=== PATIENT | female | born 1985 | race Caucasian/White ===

== ENCOUNTER 2016-10-03 04:00 | Emergency (ER) | payer BC ==
[~2016-10-03] VITALS: Ht 165.1 cm; Wt 64.0 kg
[2016-10-03] MEDS ORDERED: IBUPROFEN 400MG TABLET PO ONE (06:30)
[2016-10-03 07:33] LABS: HCG SCREEN NEGATIVE
[2016-10-03 08:00] VITALS: BP 131/81
== END 2016-10-03 08:02 | disposition home or self-care (01) ==
LOC: ER 06:31
DX: R07.89 Other chest pain (principal); Z98.890 Other specified postprocedural states
CPT/HCPCS: 71010; 84703; 93005; 99284

== ENCOUNTER 2023-12-24 19:05 | Emergency (ER) | payer MEDICAID ==
[~2023-12-24] VITALS: Ht 167.6 cm; Wt 59.0 kg
[~2023-12-24 19:05] MED LIST: ASPI-1160 PO
[2023-12-24 19:13] VITALS: O2SAT 98
[2023-12-24 20:00] VITALS: BP 122/65; PULSE 67; RESP 18; TEMP 98.1
[2023-12-24 21:01] LABS: BASOPHILS % 1.1 % (0.0-2.0); EOSINOPHILS % 5.4 % (0.0-5.0); HEMATOCRIT. 38.5 % (36.0-48.0); LYMPHOCYTES % 33.2 % (20.0-50.0); MEAN CORPUSCULAR HEMOGLOBIN 31.3 pg (28.0-32.0); MEAN CORPUSCULAR HGB CONC 33.6 g/dL (31.0-37.0); MEAN CORPUSCULAR VOLUME 93.1 fL (81.0-99.0); MONOCYTES % 6.4 % (2.0-8.0); NEUTROPHILS % 53.9 % (40.0-76.0); PLATELET 366 x1000/uL (130-400); RED BLOOD CELL COUNT 4.14 mill/uL (4.2-5.4); RED CELL DISTRIBUTION WIDTH 13.3 % (11.6-14.6); WHITE BLOOD COUNT 7.7 x1000/uL (4.5-11.0)
[2023-12-24 21:06] LABS: CHLORIDE 107 mEq/L (98-107); POTASSIUM 3.7 mEq/L (3.5-5.1); SODIUM 139 mEq/L (136-145)
[2023-12-24 21:07] LABS: CALCIUM 9.1 mg/dL (8.7-10.4); CARBON DIOXIDE 26 mEq/L (21-32)
[2023-12-24 21:12] LABS: CREATININE 0.6 mg/dL (0.6-1.0); GLUCOSE 87 mg/dL (70-105); UREA NITROGEN BLOOD 13 mg/dL (9-23)
[2023-12-24 21:14] LABS: CREATINE KINASE 67 IU/L (34-145)
[2023-12-24 21:15] LABS: PHOSPHORUS 3.9 mg/dL (2.5-4.9)
[2023-12-24 21:26] LABS: HCG SCREEN NEGATIVE
[2023-12-24 21:42] LABS: CLARITY URINE CLEAR (CLEAR); COLOR URINE YELLOW (YELLOW); GLUCOSE URINE NEGATIVE (NEGATIVE); KETONES URINE TRACE (NEGATIVE); LEUKOCYTE ESTERASE URINE 1+ (NEGATIVE); NITRITE URINE NEGATIVE (NEGATIVE); OCCULT BLOOD URINE TRACE (NEGATIVE); PROTEIN URINE NEGATIVE (NEGATIVE); SPECIFIC GRAVITY URINE 1.012 (1.005-1.030)
[2023-12-24 21:49] LABS: *AMPHETAMINES SCREEN URINE NEGATIVE (NEGATIVE); *BARBITURATES SCREEN URINE NEGATIVE (NEGATIVE); *BENZODIAZEPINES SCREEN URINE NEGATIVE (NEGATIVE)
[2023-12-24 21:50] LABS: CANNABINOID URINE SCREEN NEGATIVE (NEGATIVE); ECSTASY MDMA SCREEN URINE NEGATIVE (NEGATIVE); METHADONE URINE SCREEN NEGATIVE (NEGATIVE); OPIATES URINE SCREEN NEGATIVE (NEGATIVE); PHENCYCLIDINE URINE SCREEN NEGATIVE (NEGATIVE)
[2023-12-24 21:52] LABS: *COCAINE SCREEN URINE NEGATIVE (NEGATIVE)
[2023-12-24 22:01] LABS: BACTERIA URINE NONE SEEN; RBC URINE 0-2 /hpf (0-2); SQUAMOUS EPITHELIAL CELL URINE FEW /lpf (RARE/1+)
== END 2023-12-25 00:55 | disposition home or self-care (01) ==
LOC: ER 19:05
DX: G51.33 Clonic hemifacial spasm, bilateral (principal); R20.2 Paresthesia of skin
CPT/HCPCS: 36415; 80048; 80305; 81003; 82550; 83735; 84100; 84703; 85025; 99284